=== PATIENT | female | born 2000 | race African-American/Black ===

== ENCOUNTER 2021-06-15 06:00 | Inpatient (IN) | payer OTHER ==
[2021-06-15] MEDS ORDERED: DINOPROSTONE 10 MG INSERT.ER VAGINAL ONE (16:33)
[2021-06-16 02:41] LABS: Amphetamine Screen,Urine Not Detected (NotDetected); Barbiturate Screen,Urine Not Detected (NotDetected); Benzodiazepines Screen,Urine Not Detected (NotDetected); Cocaine Screen,Urine Not Detected (NotDetected); Methadone Screen, Urine Not Detected (NotDetected); Opiate Screen,Urine Not Detected (NotDetected); Oxycodone Screen, Urine Not Detected (NotDetected); Phencyclidine Screen,Urine Not Detected (NotDetected); Tricyclic Antidepressant,Urine Not Detected (NotDetected); Urn Cannabinoid Scrn Detected (NotDetected)
[2021-06-16] MEDS ORDERED: METHYLERGONOVINE 0.2 MG/ML 1 ML AMP IM PRN (06:11)
[2021-06-16] MEDS ORDERED: TERBUTALINE 1 MG/ML VIAL SQ PRN (06:11)
[2021-06-16] MEDS ORDERED: LIDOCAINE 1% (PF) 10 MG/ML (30 ML SDV) SQ PRN (06:11)
[2021-06-16] MEDS ORDERED: CARBOPROST TROMETHAMINE 250 MCG/ML 1 ML AMP IM PRN (06:11)
[2021-06-16] MEDS ORDERED: OXYTOCIN 10 UNIT/ML 1 ML VIAL IM PRN (06:11)
[2021-06-16] MEDS ORDERED: OXYTOCIN 30 UNITS/500 ML NS 30 UNIT in SALINE 1 500ML.BAG IV SCH (06:15)
[2021-06-16] MEDS: LACTATED RINGERS 1,000 ML IV SCH ×4 (06:23→19:11)
[2021-06-16 06:37] LABS: Basophils # (A) 0.1 k/uL (0-0.2); Basophils % (A) 0 %; Eosinophils # (A) 0.1 k/uL (0-0.7); Eosinophils % (A) 1 %; HCT 40.9 % (34.0-46.0); HGB 13.7 gm/dL (11.4-16.0); Lymphocytes # (A) 2.9 k/uL (1.0-4.8); Lymphocytes % (A) 18 %; MCH 33.1 pg (25.0-35.0); MCHC 33.6 g/dL (31.0-37.0); MCV 98.5 fL (80.0-100.0); Mean Platelet Volume 10.4; Monocytes # (A) 0.6 k/uL (0-1.0); Monocytes % (A) 4 %; Neutrophils # (A) 11.8 k/uL (1.3-7.7); Neutrophils % (A) 75 %; Platelet Count 267 k/uL (150-450); RBC 4.16 m/uL (3.80-5.40); RDW 13.5 % (11.5-15.5); WBC 15.6 k/uL (3.8-10.6)
[2021-06-16] MEDS: BUTORPHANOL 1 MG/ML 1 ML VIAL IV PRN ×2 (08:26→10:30)
[2021-06-16] MEDS ORDERED: fentaNYL (PF) 50 MCG/ML 5 ML AMP ONE (13:03)
[2021-06-16] MEDS ORDERED: ROPIVACAINE 5MG/ML 20ML VIAL ONE (13:03)
[2021-06-16] MEDS ORDERED: SODIUM CHLORIDE 0.9% 100 ML BAG ONE (13:03)
--- NOTE | 2021-06-16 17:53 | P.HPOB ---
History of Present Illness H&P Date: 06/15/21 Chief Complaint: Induction of labor 21-year-old presents at 40 weeks and 4 days for induction of labor. Her cervix is closed, 50% effaced, and -2 station. She's not andie. heart tones 130 with moderate variability and reactive. Patient is here for two-stage induction of labor with Cervidil and then Pitocin and amniotomy in the morning. Review of Systems All systems: negative Constitutional: Denies chills, Denies fever Eyes: denies blurred vision, denies pain Ears, nose, mouth and throat: Denies headache, Denies sore throat Cardiovascular: Denies chest pain, Denies shortness of breath Respiratory: Denies cough Gastrointestinal: Denies abdominal pain, Denies diarrhea, Denies nausea, Denies vomiting Genitourinary: Denies dysuria, Denies hematuria Musculoskeletal: Denies myalgias Integumentary: Denies pruritus, Denies rash Neurological: Denies numbness, Denies weakness Psychiatric: Denies anxiety, Denies depression Endocrine: Denies fatigue, Denies weight change Past Medical History Past Medical History: Asthma Additional Past Medical History / Comment(s): Obstetric history: This is patient's first and she's had renal care with me since the first trimester. Her blood type is AB+, antibodies negative, rubella immune, hepat itis B-, GBS negative, HIV nonreactive, RPR nonreactive. History of Any Multi-Drug Resistant Organisms: None Reported Past Surgical History: No Surgical Hx Reported Past Anesthesia/Blood Transfusion Reactions: No Reported Reaction Past Psychological History: No Psychological Hx Reported Smoking Status: Current every day smoker Past Alcohol Use History: None Reported Past Drug Use History: None Reported - Past Family History Father Family Medical History: Asthma, Diabetes Mellitus, Hypertension Medications and Allergies Home Medications Medication Instructions Recorded Confirmed Type Pnv,Calcium 72/Iron/Folic Acid 1 tab PO DAILY 06/15/21 06/15/21 History [ Plus Tablet] Allergies Allergy/AdvReac Type Severity Reaction Status Date / Time ibuprofen [From Motrin] Allergy Swelling Verified 12/15/15 20:55 Exam Osteopathic Statement: *. No significant issues noted on an osteopathic structural exam other than those noted in the History and Physical/Consult. Intake and Output 06/16/21 06/16/21 06/16/21 06:59 14:59 22:59 Intake Total 300 Output Total 100 Balance -100 300 Intake: Oral 300 Output: Emesis 100 Other: Voiding Method Toilet # Voids 1 1 Heart: Regular rate and rhythm Lungs: Clear to auscultation bilaterally Abdomen: Soft, nontender Extremities: Negative Homans sign Results Result Diagrams: 06/16/21 06:00 Abnormal Lab Results - Last 24 Hours (Table) 06/16/21 06/16/21 Range/Units 01:50 06:00 WBC 15.6 H (3.8-10.6) k/uL Neutrophils # 11.8 H (1.3-7.7) k/uL U Marijuana (THC) Screen Detected H (NotDetected) Assessment and Plan (1) Post-dates Current Visit: Yes Status: Acute Code(s): O48.0 - POST-TERM SNOMED Code(s): 74604151 Plan: 1. Induction of labor with Cervidil abdomen amniotomy and Pitocin 2. Anticipate normal vaginal delivery
[2021-06-16] MEDS ORDERED: AMPICILLIN 2,000 MG in SODIUM CHLORIDE 0.9% 100 ML IVPB ONE (22:00)
[2021-06-17] MEDS: AMPICILLIN 1,000 MG in SODIUM CHLORIDE 0.9% 50 ML IVPB SCH ×3 (02:31→21:29)
[2021-06-17] MEDS ORDERED: HYDROCORTISONE 2.5% RECTAL CREAM 30 GM TUBE RECTAL PRN (08:13)
[2021-06-17] MEDS ORDERED: SIMETHICONE 80 MG CHEWABLE PO PRN (08:13)
[2021-06-17] MEDS ORDERED: BENZOCAINE/MENTHOL SPRAY 1 GM/SPRAY AEROSOL TOPICAL PRN (08:13)
[2021-06-17] MEDS ORDERED: diphenhydrAMINE 50 MG CAP PO PRN (08:13)
[2021-06-17] MEDS ORDERED: LANOLIN CREAM 5 GM TUBE TOPICAL PRN (08:13)
[2021-06-17] MEDS ORDERED: diphenhydrAMINE 50 MG/ML 1 ML VIAL IVP PRN ×2 (08:13)
[2021-06-17] MEDS ORDERED: ZOLPIDEM 5 MG TAB PO PRN (08:13)
[2021-06-17] MEDS ORDERED: diphenhydrAMINE 25 MG CAP PO PRN (08:13)
[2021-06-17] MEDS ORDERED: OXYTOCIN 30 UNITS/500 ML NS 30 UNIT in SALINE 1 500ML.BAG IV SCH (08:15)
[2021-06-17] MEDS: ACETAMINOPHEN TAB 325 MG TAB PO PRN ×3 (08:27→18:14)
[2021-06-17] MEDS ORDERED: HYDROcodone/APAP 5-325MG 1 EACH TAB PO PRN (09:26)
[2021-06-17 14:56] LABS: Basophils % (A) 0 %; Eosinophils % (A) 0 %; HCT 33.5 % (34.0-46.0); HGB 11.2 gm/dL (11.4-16.0); Lymphocytes # (A) 1.7 k/uL (1.0-4.8); Lymphocytes % (A) 6 %; MCH 32.7 pg (25.0-35.0); MCHC 33.3 g/dL (31.0-37.0); MCV 98.3 fL (80.0-100.0); Mean Platelet Volume 10.5; Monocytes # (A) 0.7 k/uL (0-1.0); Monocytes % (A) 2 %; Neutrophils # (A) 26.5 k/uL (1.3-7.7); Neutrophils % (A) 91 %; Platelet Count 279 k/uL (150-450); RBC 3.41 m/uL (3.80-5.40); RDW 13.5 % (11.5-15.5)
--- NOTE | 2021-06-17 17:50 | P.PN ---
Progress Note - Text Progress Note Date: 06/17/21 I was called by the patient's nurse at approximately 1 PM today due to patient complaints of rectal pressure and pain despite several doses of pain medication and ice packs. Her bleeding has been minimal per nursing staff. I did examine the patient with a sterile glove and vaginally I can palpate a large hematoma on the right side of the vagina just inside the introitus that extends towards the rectal area. This is approximately the size of an orange. It was tender to palpation however no increased bleeding was noted after exam. I did order a stat CBC. I did increase her oxycodone dose and since she is ALLERGIC to ibuprofen we are alternating with Tylenol. This evening her pain seems to a better controlled per Cristina her nurse. She is shown no increased bleeding. Her hemoglobin did start at 13.7 and is currently 11.2 however her white count did go up to 29,000. She is currently afebrile. Another CBC is ordered for tomorrow morning. She will be watched closely tonight. She is advised that she does have a hematoma but at this point we do not recommend opening this since she does not seem to be continuing to bleed.
[2021-06-17] MEDS: SENNOSIDES-DOCUSATE SODIUM 1 EACH TAB PO SCH (21:02)
[2021-06-18] MEDS: ACETAMINOPHEN TAB 325 MG TAB PO PRN ×2 (00:09→06:06)
[2021-06-18 06:55] LABS: Basophils % (A) 0 %; Eosinophils # (A) 0.1 k/uL (0-0.7); Eosinophils % (A) 0 %; HCT 27.7 % (34.0-46.0); Lymphocytes # (A) 4.5 k/uL (1.0-4.8); Lymphocytes % (A) 20 %; MCH 31.8 pg (25.0-35.0); MCHC 32.8 g/dL (31.0-37.0); MCV 97.2 fL (80.0-100.0); Mean Platelet Volume 10.5; Monocytes # (A) 0.9 k/uL (0-1.0); Monocytes % (A) 4 %; Neutrophils # (A) 16.9 k/uL (1.3-7.7); Neutrophils % (A) 74 %; Platelet Count 241 k/uL (150-450); RBC 2.85 m/uL (3.80-5.40); RDW 13.7 % (11.5-15.5); WBC 22.8 k/uL (3.8-10.6)
[2021-06-18 07:15] LABS: HGB 9.1 gm/dL (11.4-16.0)
--- NOTE | 2021-06-18 08:38 | P.PROBDLV ---
Vaginal Delivery Note - . Vaginal Delivery Note: 21-year-old presented at 40 weeks and 4 days for Cervidil induction of labor. Her cervix was closed, 50% effaced, and -3 station. She is not andie. heart tones were 135 with moderate variability and reactive. Cervidil was placed by my partner, Dr. Nur. In the morning patient was 1 cm dilated, 60% effaced, -2 station. She was andie irregularly. heart tones remained category 1. Amniotomy performed at 7:15 AM 06/16/2021 and clear fluid noted. Pitocin augmentation was also started. She progressed slowly throughout the day and was 3 cm for quite some time. We severally slowly increased Pitocin and patient went to position changes. She didn't have an epidural and was quite comfortable with this. Her cervix is completely dilated at 7 AM 06/17/2021. She pushed, and delivered a viable male infant over intact perineum under epidural anesthesia at 7:29 AM. Head delivered OA, anterior shoulder delivered gentle downward guidance followed by posterior shoulder and rest of body. Nose and mouth bulb suctioned, cord clamped and cut, infant placed mother's abdomen. Apgars 8, 9, weight 6 pounds 5.6 ounces. Placenta delivered spontaneously, intact with three-vessel cord at 7:32 AM. Vagina, cervix, perineum inspected. Second-degree midline laceration repaired with 3-0 Vicryl. Estimated blood loss 150 mL. Mother and baby in stable condition.
--- NOTE | 2021-06-18 08:42 | P.DS ---
Providers Date of admission: 06/15/21 16:10 Expected date of discharge: 06/18/21 Attending physician: Jennifer Garnica Primary care physician: Stated None - Discharge Diagnosis(es) (1) Post-dates Current Visit: Yes Status: Resolved (2) Normal vaginal delivery Current Visit: Yes Status: Acute (3) Vaginal vault hematoma Current Visit: Yes Status: Acute (4) Anemia associated with acute blood loss Current Visit: Yes Status: Acute Hospital Course: Patient presented for induction of labor is for postdates. She had Cervidil placed and then underwent amniotomy and Pitocin augmentation. She had a normal vaginal delivery. course was complicated with some rectal and pelvic, perineal pain. My partner, Dr. Marcos, came over to assess patient as well as post call and found a right-sided hematoma in the vaginal vault. The patient's pain is much better today. She is walking around the room, able to take a shower, go to the bathroom, do her activities of daily living without severe discomfort. Patient will be discharged home day #1 in stable condition to follow-up with me in 6 weeks. Plan - Discharge Summary New Discharge Prescriptions: New oxyCODONE HCL [OxyIR] 10 mg PO Q4-6H PRN #18 tab PRN Reason: Pain No Action Pnv,Calcium 72/Iron/Folic Acid [ Plus Tablet] 1 tab PO DAILY Discharge Medication List Pnv,Calcium 72/Iron/Folic Acid [ Plus Tablet] 1 tab PO DAILY 06/15/21 [History] oxyCODONE HCL [OxyIR] 10 mg PO Q4-6H PRN #18 tab 06/18/21 [Rx] Follow up Appointment(s)/Referral(s): Jennifer Garnica DO [Doctor of Osteopathic Medicine] - 07/28/21 3:45 pm Discharge Disposition: HOME SELF-CARE
[2021-06-18] MEDS: SENNOSIDES-DOCUSATE SODIUM 1 EACH TAB PO SCH (10:05)
[2021-06-18 10:54] VITALS: BP 111/73; PULSE 103; RESP 16; TEMP 98.4
== END 2021-06-18 11:15 | disposition home or self-care (01) | DRG 806 ==
LOC: 4FBP 16:10
PROVIDERS: ADMIT Obstetrics & Gynecology; ATTEND Obstetrics & Gynecology
PROC: 10E0XZZ Delivery of Products of Conception, External Approach (ICD-10-PCS; principal; 2021-06-17)
PROC: 0KQM0ZZ Repair Perineum Muscle, Open Approach (ICD-10-PCS; 2021-06-17)
PROC: 10907ZC Drainage of Amniotic Fluid, Therapeutic from Products of Conception, Via Natural or Artificial Opening (ICD-10-PCS; 2021-06-17)
PROC: 3E0P7VZ Introduction of Hormone into Female Reproductive, Via Natural or Artificial Opening (ICD-10-PCS; 2021-06-17)
PROC: 3E033VJ Introduction of Other Hormone into Peripheral Vein, Percutaneous Approach (ICD-10-PCS; 2021-06-17)
PROC: 4A0HXCZ Measurement of Products of Conception, Cardiac Rate, External Approach (ICD-10-PCS; 2021-06-17)
DX: O70.1 Second degree perineal laceration during delivery (principal); D62 Acute posthemorrhagic anemia; Z37.0 Single live birth; F17.210 Nicotine dependence, cigarettes, uncomplicated; O90.2 Hematoma of obstetric wound; J45.909 Unspecified asthma, uncomplicated; O90.81 Anemia of the puerperium; O48.0 Post-term pregnancy; O99.334 Smoking (tobacco) complicating childbirth; O99.52 Diseases of the respiratory system complicating childbirth; Z3A.40 40 weeks gestation of pregnancy; Z88.6 Allergy status to analgesic agent
CPT/HCPCS: 80306; 85025; 86850; 86900; 86901

== ENCOUNTER 2023-06-19 23:18 | Emergency (ER) | payer OTHER ==
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
[2023-06-19 23:47] VITALS: TEMP 98
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
[2023-06-20] MEDS: ACETAMINOPHEN TAB 325 MG TAB PO STA (01:55)
[2023-06-20] MEDS: ACETAMINOPHEN TAB 500 MG TAB PO STA (02:03)
[2023-06-20 02:22] VITALS: BP 110/74; PULSE 81; RESP 18
== END 2023-06-20 02:00 | disposition home or self-care (01) ==
LOC: EC 23:18
DX: S40.812A Abrasion of left upper arm, initial encounter (principal); S40.811A Abrasion of right upper arm, initial encounter; S80.812A Abrasion, left lower leg, initial encounter; S80.811A Abrasion, right lower leg, initial encounter; F17.200 Nicotine dependence, unspecified, uncomplicated; Z88.6 Allergy status to analgesic agent; V40.6XXA Car passenger injured in collision with pedestrian or animal in traffic accident, initial encounter; Y92.410 Unspecified street and highway as the place of occurrence of the external cause
CPT/HCPCS: 70450; 71046; 72100; 72125; 99284